=== PATIENT | female | born 1955 | race Caucasian/White ===

== ENCOUNTER 2024-07-11 18:26 | Emergency (ER) | payer BC, OTHER ==
[~2024-07-11] VITALS: Ht 162.6 cm; Wt 52.2 kg
[2024-07-11 18:40] VITALS: BP 131/89; TEMP 98.3; O2SAT 98
[2024-07-11] MEDS: FLUORESCEIN SODIUM OPHTH 1 EA STRIP OP ONE (20:44)
[2024-07-11] MEDS: TETRAcaine 5 ML BOTTLE EACHEYE ONE (20:44)
== END 2024-07-11 21:51 | disposition home or self-care (01) ==
LOC: ER 18:34
DX: H57.89 Other specified disorders of eye and adnexa (principal); Z77.098 Contact with and (suspected) exposure to other hazardous, chiefly nonmedicinal, chemicals; Z60.2 Problems related to living alone